=== PATIENT | male | born 1955 | race Caucasian/White ===

== ENCOUNTER 2023-03-24 09:15 | Outpatient (RCR) | payer OTHER, SELFPAY ==
[2023-01-28 09:43] VITALS: BMI 43.0
[2023-01-28 10:41] VITALS: BMI 43.0
== END 2023-04-15 08:36 | disposition home or self-care (01) ==
LOC: ANHDMC 09:15
PROVIDERS: PCP Internal Medicine; Visit Provider Internal Medicine
DX: E11.9 Type 2 diabetes mellitus without complications (principal); Z71.89 Other specified counseling; Z71.3 Dietary counseling and surveillance
CPT/HCPCS: 97802; G0108

== ENCOUNTER 2023-06-15 09:30 | Outpatient (RCR) | payer OTHER, SELFPAY ==
[2023-06-15 10:14] VITALS: BMI 41.8
[2023-06-15 10:15] VITALS: BMI 41.8
== END 2023-06-21 14:26 | disposition home or self-care (01) ==
LOC: ANHDMC 09:30
PROVIDERS: PCP Internal Medicine; Visit Provider Internal Medicine
DX: E11.9 Type 2 diabetes mellitus without complications (principal); Z71.89 Other specified counseling; Z71.3 Dietary counseling and surveillance
CPT/HCPCS: 97803; G0108